=== PATIENT | female | born 1990 | race African-American/Black ===

== ENCOUNTER 2020-12-22 17:00 | Emergency (ER) | payer MEDICAID, OTHER ==
[~2020-12-22] VITALS: Ht 170.2 cm; Wt 57.6 kg
[2020-12-22 17:44] LABS: HEMATOCRIT 41.6 % (31.2-41.9); MEAN CORPUSCULAR HEMOGLOBIN 26.8 uug (24.7-32.8); MEAN CORPUSCULAR VOLUME 84.1 fL (75.5-95.3); PLATELET COUNT (AUTO) 189 K/uL (179-408)
[2020-12-22 17:47] LABS: POTASSIUM 4.2 mmol/L (3.5-5.1)
[2020-12-22 17:52] LABS: BILIRUBIN,TOTAL 0.5 mg/dL (0.2-1.0)
[2020-12-22 17:55] LABS: *CLARITY,URINE CLEAR (CLEAR); *COLOR,URINE YELLOW (YELLOW); PH,URINE 5.5 (5.0-8.0); UGLUCOSE NEGATIVE (NEGATIVE)
[2020-12-22 17:56] LABS: *BILIRUBIN,URIN NEGATIVE (NEGATIVE); *BLOOD, URINE TRACE LYSED (NEGATIVE); *KETONES,URINE NEGATIVE (NEGATIVE); *URINE HCG, QUAL NEGATIVE (NEGATIVE); *UROBILINOGEN,URINE 0.2 E.U./dl (NORMAL); LEUKOCYTE ESTERASE ,URINE NEGATIVE (NEGATIVE); NITRITE, URINE NEGATIVE (NEGATIVE)
[2020-12-22] MEDS ORDERED: ONDANSETRON ODT 4 MG TAB.RAPDIS ONE (17:59)
[2020-12-22] MEDS ORDERED: ONDANSETRON ODT 4 MG TAB.RAPDIS SL ONE (18:00)
--- NOTE | 2020-12-22 18:51 | NUR ---
Patient discharged to home in stable condition. Written and verbal after care instructions given. Patient verbalizes understanding of instructions. Stressed follow up or return to ER for worsening s/s.
== END 2020-12-22 18:52 | disposition home or self-care (01) ==
LOC: ER 17:00
DX: O03.9 Complete or unspecified spontaneous abortion without complication (principal); R11.0 Nausea
CPT/HCPCS: 36415; 76856; 84703; 85025; A4663; Q0162

== ENCOUNTER 2021-02-18 14:26 | Emergency (ER) | payer OTHER ==
[~2021-02-18] VITALS: Ht 170.2 cm; Wt 53.1 kg
[2021-02-18 15:07] LABS: HEMATOCRIT 40.8 % (31.2-41.9); MEAN CORPUSCULAR HEMOGLOBIN 27.4 uug (24.7-32.8); MEAN CORPUSCULAR VOLUME 82.8 fL (75.5-95.3); PLATELET COUNT (AUTO) 206 K/uL (179-408)
[2021-02-18 16:40] VITALS: BP 115/81
== END 2021-02-18 16:42 | disposition home or self-care (01) ==
LOC: ER 14:29
DX: N93.9 Abnormal uterine and vaginal bleeding, unspecified (principal)
CPT/HCPCS: 36415; 76856; 85025; 86850; 86900; 86901; A4663